=== PATIENT | female | born 1995 | race American Indian/Alaskan Native ===

== ENCOUNTER 2018-05-24 23:59 | Emergency (ER) | payer SELFPAY ==
[2018-05-25 00:28] VITALS: BP 141/74
== END 2018-05-25 04:01 | disposition left against medical advice (07) ==
LOC: ED 23:59
DX: F41.9 Anxiety disorder, unspecified (principal); Z53.21 Procedure and treatment not carried out due to patient leaving prior to being seen by health care provider

== ENCOUNTER 2018-06-15 12:46 | Emergency (ER) | payer OTHER ==
--- NOTE | 2018-06-15 13:04 | Emergency Department Report ---
Blank Doc - Documentation Documentation: pt presents with SI with plan to overdose on crack labs ordered MD evaluate
[2018-06-15 13:46] LABS: Basophils # (Auto) 0.1 K/mm3 (0.0-0.1); Basophils % (Auto) 0.5 % (0.0-1.8); Eosinophils # (Auto) 0.1 K/mm3 (0.0-0.4); Eosinophils % (Auto) 0.5 % (0.0-4.3); Hematocrit 31.2 % (30.3-42.9); Lymphocytes # (Auto) 1.4 K/mm3 (1.2-5.4); Lymphocytes % (Auto) 11.1 % (13.4-35.0); Mean Corpuscular HGB Conc 32 % (30-34); Mean Corpuscular Volume 86 fl (79-97); Monocytes # (Auto) 0.6 K/mm3 (0.0-0.8); Monocytes % (Auto) 4.8 % (0.0-7.3); Platelet Count 260 K/mm3 (140-440); Red Blood Count 3.61 M/mm3 (3.65-5.03); Red Cell Distribution Width 16.2 % (13.2-15.2)
[2018-06-15 13:53] LABS: Alanine Aminotransferase 51 units/L (7-56); BUN/Creatinine Ratio 14; Blood Urea Nitrogen 11 mg/dL (7-17); Calcium 8.6 mg/dL (8.4-10.2); Hemolysis Index 10
[2018-06-15 19:50] LABS: Amphetamine Screen,Urine PRESUMPTIVE NEGATIVE; Benzodiazepines Screen,Urine PRESUMPTIVE NEGATIVE; Cannabinoid Screen,Urine PRESUMPTIVE NEGATIVE; Methadone Screen,Urine PRESUMPTIVE NEGATIVE; Opiate Screen,Urine PRESUMPTIVE NEGATIVE
--- NOTE | 2018-06-15 19:50 | Emergency Department Report ---
ED Psych HPI - General Chief Complaint: Psych Stated Complaint: SI Time Seen by Provider: 06/15/18 13:01 Source: patient Mode of arrival: Ambulatory - History of Present Illness Initial Comments: Patient is a 23-year-old female who recently moved to [place] and is having regular social issues. Patient is homeless and also is off of her medications. Patient states that she's having suicidal ideations at this time. Patient does not have a definitive plan but feels though she is unsafe to be discharged. Patient is coming in requesting a 1013 because she does not feel as though she can be outside in the general population without kill himself. - Related Data Home Medications Medication Instructions Recorded Confirmed Last Taken Unobtainable 05/25/18 05/25/18 Unknown Allergies Allergy/AdvReac Type Severity Reaction Status Date / Time No Known Allergies Allergy Verified 06/15/18 12:51 ED Review of Systems ROS: Stated complaint: SI Other details as noted in HPI Comment: All other systems reviewed and negative ED Past Medical Hx - Past Medical History Previous Medical History?: Yes Hx Hypertension: Yes Hx Psychiatric Treatment: Yes ("hypomanic") - Surgical History Past Surgical History?: No - Social History Smoking Status: Never Smoker Substance Use Type: None - Medications Home Medications: Home Medications Medication Instructions Recorded Confirmed Last Taken Type Unobtainable 05/25/18 05/25/18 Unknown History ED Physical Exam - General Limitations: No Limitations General appearance: alert, in no apparent distress - Head Head exam: Present: atraumatic, normocephalic - Eye Eye exam: Present: normal appearance - ENT ENT exam: Present: mucous membranes moist - Neck Neck exam: Present: normal inspection - Respiratory Respiratory exam: Present: normal lung sounds bilaterally. Absent: respiratory distress, wheezes, rales, rhonchi - Cardiovascular Cardiovascular Exam: Present: regular rate, normal rhythm. Absent: systolic murmur, diastolic murmur, rubs, gallop - GI/Abdominal GI/Abdominal exam: Present: soft, normal bowel sounds - Extremities Exam Extremities exam: Present: normal inspection - Back Exam Back exam: Present: normal inspection - Neurological Exam Neurological exam: Present: alert, oriented X3 - Psychiatric Psychiatric exam: Present: normal affect, normal mood - Skin Skin exam: Present: warm, dry, intact, normal color. Absent: rash ED Course Vital Signs 06/15/18 12:59 Temperature 97.3 F L Pulse Rate 83 Respiratory 16 Rate Blood Pressure 118/79 O2 Sat by Pulse 100 Oximetry ED Medical Decision Making - Lab Data Result diagrams: 06/15/18 13:11 06/15/18 13:11 Lab Results 06/15/18 06/15/18 06/15/18 Range/Units 13:11 13:11 13:11 WBC 12.6 H (4.5-11.0) K/mm3 RBC 3.61 L (3.65-5.03) M/mm3 Hgb 10.0 L (10.1-14.3) gm/dl Hct 31.2 (30.3-42.9) % MCV 86 (79-97) fl MCH 28 (28-32) pg MCHC 32 (30-34) % RDW 16.2 H (13.2-15.2) % Plt Count 260 (140-440) K/mm3 Lymph % (Auto) 11.1 L (13.4-35.0) % [place] % (Auto) 4.8 (0.0-7.3) % Eos % (Auto) 0.5 (0.0-4.3) % Baso % (Auto) 0.5 (0.0-1.8) % Lymph # 1.4 (1.2-5.4) K/mm3 [place] # 0.6 (0.0-0.8) K/mm3 Eos # 0.1 (0.0-0.4) K/mm3 Baso # 0.1 (0.0-0.1) K/mm3 Seg Neutrophils % 83.1 H (40.0-70.0) % Seg Neutrophils # 10.5 H (1.8-7.7) K/mm3 Sodium 138 (137-145) mmol/L Potassium 3.8 (3.6-5.0) mmol/L Chloride 102.0 (98-107) mmol/L Carbon Dioxide 25 (22-30) mmol/L Anion Gap 15 mmol/L BUN 11 (7-17) mg/dL Creatinine 0.8 (0.7-1.2) mg/dL Estimated GFR > 60 ml/min BUN/Creatinine Ratio 14 % Glucose 106 H (65-100) mg/dL Calcium 8.6 (8.4-10.2) mg/dL Total Bilirubin 0.40 (0.1-1.2) mg/dL AST 49 H (5-40) units/L ALT 51 (7-56) units/L Alkaline Phosphatase 70 (35-129) units/L Total Protein 7.8 (6.3-8.2) g/dL Albumin 4.0 (3.9-5) g/dL Albumin/Globulin Ratio 1.1 % HCG, Qual (Negative) Salicylates < 0.3 L (2.8-20.0) mg/dL Acetaminophen (10.0-30.0) ug/mL Carbamazepine 2.0 L (4-12) ug/mL Plasma/Serum Alcohol (0-0.07) % 06/15/18 06/15/18 06/15/18 Range/Units 13:11 13:11 13:11 WBC (4.5-11.0) K/mm3 RBC (3.65-5.03) M/mm3 Hgb (10.1-14.3) gm/dl Hct (30.3-42.9) % MCV (79-97) fl MCH (28-32) pg MCHC (30-34) % RDW (13.2-15.2) % Plt Count (140-440) K/mm3 Lymph % (Auto) (13.4-35.0) % [place] % (Auto) (0.0-7.3) % Eos % (Auto) (0.0-4.3) % Baso % (Auto) (0.0-1.8) % Lymph # (1.2-5.4) K/mm3 [place] # (0.0-0.8) K/mm3 Eos # (0.0-0.4) K/mm3 Baso # (0.0-0.1) K/mm3 Seg Neutrophils % (40.0-70.0) % Seg Neutrophils # (1.8-7.7) K/mm3 Sodium (137-145) mmol/L Potassium (3.6-5.0) mmol/L Chloride (98-107) mmol/L Carbon Dioxide (22-30) mmol/L Anion Gap mmol/L BUN (7-17) mg/dL Creatinine (0.7-1.2) mg/dL Estimated GFR ml/min BUN/Creatinine Ratio % Glucose (65-100) mg/dL Calcium (8.4-10.2) mg/dL Total Bilirubin (0.1-1.2) mg/dL AST (5-40) units/L ALT (7-56) units/L Alkaline Phosphatase (35-129) units/L Total Protein (6.3-8.2) g/dL Albumin (3.9-5) g/dL Albumin/Globulin Ratio % HCG, Qual Negative (Negative) Salicylates (2.8-20.0) mg/dL Acetaminophen < 5.0 L (10.0-30.0) ug/mL Carbamazepine (4-12) ug/mL Plasma/Serum Alcohol < 0.01 (0-0.07) % - Medical Decision Making Patient is medically cleared at this time. Critical care attestation.: If time is entered above; I have spent that time in minutes in the direct care of this critically ill patient, excluding procedure time. ED Disposition Clinical Impression: Encounter for psychiatric assessment, Suicidal ideation Disposition: DC/TX-65 PSY HOSP/PSY UNIT Is pt being admited?: No Does the pt Need Aspirin: No Condition: Stable Time of Disposition: 19:50
[2018-06-15 20:02] LABS: Cocaine Screen,Urine PRESUMPTIVE POSITIVE
[2018-06-15 20:29] LABS: Bacteria,Urine 1+ /HPF (Negative); Bilirubin,Urine NEG (Negative); Blood,Urine NEG (Negative); Color,Urine Yellow (Yellow); Mucus,Urine FEW /HPF; Protein,Urine <15 mg/dL mg/dL (Negative); Urobilinogen,Urine < 2.0 mg/dL (<2.0)
--- NOTE | 2018-06-16 13:17 | Consultation ---
History of Present Illness - Reason for Consult Consult date: 06/16/18 Reason for consult: Mental Health Evaluation Requesting physician: SMITA STERN - Chief Complaint Chief complaint: "I don't want to live" - History of Present Psychiatric Illness 23 y.o. AA female who presented to the ER for SI's and homelessness. This patient is known to me. Today the patient is calm, but somewhat guarded during the assessment. She stated that her life is in "shambles." She stated that she don't know what to do get stable. She stated that she binged on "crack cociane" prior to coming to the ER. The patient was recently released from [facility]. She endorsed SI's, but would not confirm or deny a suicide plan. She would not confirm is she have attempted suicide in the past when asked. She denies Hi's and AVH's. She denies a poor appetite, but admitted to erratic sleep. She denies alcohol consumption (etoh). Medications and Allergies Allergies Allergy/AdvReac Type Severity Reaction Status Date / Time No Known Allergies Allergy Verified 06/15/18 12:51 Home Medications Medication Instructions Recorded Confirmed Last Taken Type Unobtainable 05/25/18 06/15/18 Unknown History Past psychiatric history - Past Medical History Past Medical History: No medical history Past Surgical History: No surgical history - past Psychiatric treatment and history psychiatric treatment history: Several inpatient psy settings in the past. Denies a fam psy hx. - Social History Social history: other (Homeless) Mental Status Exam - Vital signs Last Vital Signs Temp 97.8 F 06/16/18 08:16 Pulse 80 06/16/18 08:16 Resp 18 06/16/18 08:16 BP 115/63 06/16/18 08:16 Pulse Ox 98 06/16/18 08:16 - Exam Narrative exam: MSE: Appearance: in hospital attire Behavior: regular eye contact Speech: regular rate and tone Mood: "depressed" somewhat guarded Affect: flat Thought Process: circumstantial Thought Content: denies HI's and AVH's Motor Activity: ambulatory Cognition: A/O x3 Insight: poor Judgment: poor Results Result Diagrams: 06/15/18 13:11 06/15/18 13:11 Abnormal lab results 04/11/19 04/11/19 04/11/19 Range/Units 13:11 13:11 13:11 WBC 12.6 H (4.5-11.0) K/mm3 RBC 3.61 L (3.65-5.03) M/mm3 Hgb 10.0 L (10.1-14.3) gm/dl RDW 16.2 H (13.2-15.2) % Lymph % (Auto) 11.1 L (13.4-35.0) % Seg Neutrophils % 83.1 H (40.0-70.0) % Seg Neutrophils # 10.5 H (1.8-7.7) K/mm3 Glucose 106 H (65-100) mg/dL AST 49 H (5-40) units/L Salicylates < 0.3 L (2.8-20.0) mg/dL Acetaminophen (10.0-30.0) ug/mL Carbamazepine 2.0 L (4-12) ug/mL 06/15/18 Range/Units 13:11 WBC (4.5-11.0) K/mm3 RBC (3.65-5.03) M/mm3 Hgb (10.1-14.3) gm/dl RDW (13.2-15.2) % Lymph % (Auto) (13.4-35.0) % Seg Neutrophils % (40.0-70.0) % Seg Neutrophils # (1.8-7.7) K/mm3 Glucose (65-100) mg/dL AST (5-40) units/L Salicylates (2.8-20.0) mg/dL Acetaminophen < 5.0 L (10.0-30.0) ug/mL Carbamazepine (4-12) ug/mL All other labs normal. Assessment and Plan Assessment and plan: Impression: Unspecified Mood DO. Substance Use DO (cocaine). Today the patient is calm, but somewhat guarded during the assessment. DDx: Bipolar DO, Substance Induced Mood DO Recommendation/Plan: Continue 1013 and start home medications [place] 300 mg PO BID for mood and Zyprexa 5 mg PO HS for mood. Discussed possible metabolic side effects of Zyprexa with the patient. Dispo: The patient was referred to inpatient psy services. Will staff with Dr Lindy Quinn.
[2018-06-16] MEDS: ESKALITH PO SCH ×2 (19:03→22:03)
[2018-06-17] MEDS: ESKALITH PO SCH ×2 (10:40→22:02)
--- NOTE | 2018-06-17 18:19 | Progress Note ---
Subjective - Reason for Consult Consult date: 06/17/18 Reason for consult: follow up - Chief Complaint Chief complaint: "I want to ." 23 y.o. AA female who presented to the ER for SI's and homelessness. She states she is at her lowest and is suicidal. She states she has nothing to live for. 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 She states she has no parents and no siblings. She cannot identify a support system. Mental Status Exam - Vital signs Last Vital Signs Temp 98 F 06/17/18 15:00 Pulse 77 06/17/18 15:00 Resp 18 06/17/18 15:00 BP 119/73 06/17/18 15:00 Pulse Ox 99 06/17/18 15:00 - Exam Narrative exam: MSE: Appearance: in hospital attire Behavior: regular eye contact Speech: regular rate and tone Mood: "depressed" Affect: flat Thought Process: circumstantial Thought Content: denies HI's and AVH's Motor Activity: ambulatory Cognition: A/O x3 Insight: fair Judgment: poor Assessment and Plan Impression: Unspecified Mood DO. Substance Use DO (cocaine). Today the patient is calm,cooperative, depressed, hopeless, and suicidal. DDx: Bipolar DO, Substance Induced Mood DO Recommendation/Plan: Continue 1013 and continue home medications [place] 300 mg PO BID for mood and Zyprexa 5 mg PO HS for mood. Discussed possible metabolic side effects of Zyprexa with the patient. Dispo: The patient was referred to inpatient psy services. Will staff with Dr Lindy Quinn.
[2018-06-18] MEDS: ESKALITH PO SCH (10:11)
[2018-06-18 14:52] VITALS: BP 105/65
== END 2018-06-18 15:12 ==
LOC: ED 12:46 → EEVIPCON 12:46 → ED 06-18 15:12
DX: F39 Unspecified mood [affective] disorder (principal); F14.10 Cocaine abuse, uncomplicated; I10 Essential (primary) hypertension
CPT/HCPCS: 36415; 80053; 80156; 80178; 80307; 81001; 84703; 85025; 99285; G0480; 80320